=== PATIENT | male | born 1975 | race Hispanic/Latino ===

== ENCOUNTER 2017-01-22 23:59 | Observation (INO) | payer OTHER ==
[2017-01-23 00:03] VITALS: TEMP 98.3
[2017-01-23] MEDS ORDERED: Sodium Chloride 0.9% 1,000 ML IV STA (00:14)
--- NOTE | 2017-01-23 01:10 | ED PDOC ---
HPI: Psych/Substance Abuse Time Seen by Provider: 01/23/17 00:07 Chief Complaint (Nursing): Alcohol Ingestion Chief Complaint (Provider): Alcohol Ingestion ED Caveat: Intoxicated History Per: Patient History/Exam Limitations: intoxication Current Symptoms Are (Timing): Still Present Suicide/Self Injury Attempted (Context): None Modifying Factor(s): Alcohol Associated Symptoms: Agitation Additional Complaint(s): 41 year old male brought in by EMS presents to ED due to alcohol intoxication and has no past medical history. Patient arrives to ED slightly combative with an unsteady gait. Patient's HPI is limited secondary to patient's intoxicated state. PCP: Unknown Past Medical History Reviewed: Historical Data, Nursing Documentation, Vital Signs Vital Signs: Last Vital Signs Temp 98.3 F 01/23/17 00:02 Pulse 92 H 01/23/17 00:02 Resp 20 01/23/17 00:02 BP 129/79 01/23/17 00:02 Pulse Ox 99 01/23/17 00:02 - Medical History PMH: No Chronic Diseases - Surgical History Surgical History: No Surg Hx - Social History Alcohol: Social - Home Medications Home Medications: Ambulatory Orders Medication Instructions Recorded Unobtainable 01/23/17 - Allergies Allergies/Adverse Reactions: Allergies Allergy/AdvReac Type Severity Reaction Status Date / Time No Known Allergies Allergy Verified 01/23/17 00:03 Review of Systems Review Of Systems: ROS cannot be obtained secondary to pt's inabilty to answer questions. (Due to intoxicated state) Physical Exam - Reviewed Nursing Documentation Reviewed: Yes Vital Signs Reviewed: Yes - Physical Exam Appears: Positive for: Non-toxic, No Acute Distress Head Exam: Positive for: ATRAUMATIC, NORMOCEPHALIC Skin: Positive for: Normal Color, Warm, Dry Eye Exam: Positive for: Normal appearance, EOMI, PERRL ENT: Positive for: Normal ENT Inspection Neck: Positive for: Normal, Painless ROM, Supple Cardiovascular/Chest: Positive for: Regular Rate, Rhythm. Negative for: Murmur Respiratory: Positive for: Normal Breath Sounds. Negative for: Respiratory Distress Gastrointestinal/Abdominal: Positive for: Soft. Negative for: Tenderness Back: Positive for: Normal Inspection Extremity: Positive for: Normal ROM, Other (Abrasion to right hand 3rd digit). Negative for: Deformity Neurologic/Psych: Negative for: Alert, Oriented, Motor/Sensory Deficits - ECG O2 Sat by Pulse Oximetry: 99 (RA) Pulse Ox Interpretation: Normal Medical Decision Making Medical Decision Makin Initial impression: alcohol intoxication Initial plan: * EtOH serum * Ativan 1mg IVP * NS IV * Accucheck * ED OBS ADMISSION All further documentation will take place in ED OBS section of chart. Scribe Attestation: Documented by Monse Kenyon acting as a scribe for Bk Stone MD. Scribe Attestation: All medical record entries made by the Scribe were at my direction and personally dictated by me. I have reviewed the chart and agree that the record accurately reflects my personal performance of the history, physical exam, medical decision making, and the department course for this patient. I have also personally directed, reviewed, and agree with the discharge instructions and disposition. ED OBSERVATION Discharge: Yes Date of observation admission: 01/23/17 Time of observation admission: 00:14 - Observation admission statement Patient is being placed in observation because:: Alcohol intoxication - Goals of Observation Goals of observation are:: Clinical sobriety - Progress Note Progress Note: 01/23/17 01:25 Patient resting comfortably. Vitals stable. 01/23/17 02:39 Patient resting comfortably. Vitals stable. 01/23/17 03:53 Patient resting comfortably. Vitals stable. 01/23/17 05:21 Patient resting comfortably. Vitals stable. 01/23/17 06:22 CT FINDINGS There is mild motion artifact. There is mild brain parenchymal atrophy. There is no midline shift or mass effect. There is no evidence of an acute ischemic stroke. There is no intracranial hemorrhage. The skull shows no evidence of injury or other acute pathologic processes. There is slight mucosal thickening in the paranasal sinuses. IMPRESSION: There is no acute intracranial abnormality. Patient is awake, alert, oriented, and able to walk with a steady gait. Patient is medically stable for discharge. Disposition - Clinical Impression Clinical Impression: Alcohol abuse - Disposition Disposition Time: 00:14 Condition: FAIR - Pt Status Changed To: Hospital Disposition Of: Observation
[2017-01-23 05:48] VITALS: BP 125/80; RESP 16
[2017-01-23 06:26] VITALS: PULSE 75; O2SAT 100
--- NOTE | 2017-01-23 08:01 | CT ---
PROCEDURE: CT HEAD WITHOUT CONTRAST. HISTORY: head injury, intox COMPARISON: None available. TECHNIQUE: Axial computed tomography images were obtained through the head/brain without intravenous contrast. Radiation dose: Total exam DLP = 943.4 mGy-cm. This CT exam was performed using one or more of the following dose reduction techniques: Automated exposure control, adjustment of the mA and/or kV according to patient size, and/or use of iterative reconstruction technique. FINDINGS: HEMORRHAGE: No intracranial hemorrhage. BRAIN: No mass effect or edema. No atrophy or chronic microvascular ischemic changes. VENTRICLES: Unremarkable. No hydrocephalus. CALVARIUM: Unremarkable. PARANASAL SINUSES: Mild sinuses mucosal disease. MASTOID AIR CELLS: Unremarkable as visualized. No inflammatory changes. OTHER FINDINGS: None. IMPRESSION: No evidence of acute intracranial hemorrhage intracranial collection mass effect or midline shift. Mild sinuses mucosal disease. Preliminary report was submitted by [facility].
== END 2017-01-23 06:21 | disposition home or self-care (01) ==
LOC: H.ER 23:59 → H.EROBSV 01-23 00:15
PROVIDERS: ADMIT Emergency Medicine; ATTEND Emergency Medicine
DX: F10.129 Alcohol abuse with intoxication, unspecified (principal)